=== PATIENT | female | born 1930 | race African-American/Black ===

== ENCOUNTER 2016-08-26 09:03 | Inpatient (IN) ==
[2016-08-26] MEDS ORDERED: DECADRON IM ONE (09:33)
[2016-08-26] MEDS ORDERED: CARDIZEM IV ONE ×2 (09:46→11:06)
[2016-08-26] MEDS ORDERED: NS 1,000 ML IV ONE ×2 (09:46→11:08)
[2016-08-26 10:03] LABS: MANUAL DIFF NEEDED? NO
[2016-08-26 10:07] LABS: BASO% 0.2 % (0.0-0.8); EOS# 0.33 X1000 (0.0-0.7); EOS% 2.8 % (0.0-10.0); HEMATOCRIT 39.5 % (37.0-47.0); IMM GRAN# 0.03 X1000 (0.0-0.04); IMM GRAN% 0.3 % (0.0-0.5); LYMPH# 1.78 X1000 (1.2-3.4); LYMPH% 14.9 % (20.5-51.1); MCH 27.5 PG (27-31); MCHC 32.9 g/dL (33-37); MCV 83.5 FL (81-99); MONO# 1.12 X1000 (0.11-0.59); MONO% 9.4 % (1.7-9.3); MPV 9.8 FL (7.4-10.4); NEUT% 72.4 % (42.2-75.2); PLT 400 X1000 (130-400); RBC 4.73 XMIL (4.2-5.4)
[2016-08-26 10:27] LABS: AGAP 19; ALBUMIN 4.1 g/dL (3.5-5.0); ALKALINE PHOSPHATASE 81 U/L (32-104); BUN 16 mg/dL (8-22); CALCIUM 10.5 mg/dL (8.8-10.2); CHLORIDE 99 mmol/L (98-107); CK PROFILE 98 U/L (24-173); COSMO 281; GOT 23 U/L (10-30); GPT 17 U/L (10-36); POTASSIUM 3.4 mmol/L (3.5-5.1); SODIUM 139 mmol/L (136-145); TCO2 21 mmol/L (25-35); TOTAL BILIRUBIN 0.43 mg/dL (0.20-1.00); TOTAL PROTEIN 8.4 g/dL (6.3-8.3)
--- NOTE | 2016-08-26 10:47 | PROVIDER DOCUMENTATION ---
This chart was entered by Mili Flores Scribe, acting as scribe for David Varela PA. HPI-EENT General - General Chief Complaint: Sore Throat Stated Complaint: SORE THROAT Time Seen by Provider: 08/26/16 09:26 Source: patient Allergies/Adverse Reactions: Patient Allergies Allergy/AdvReac Type Severity Reaction Status Date / Time Penicillins Allergy Intermediate RASH Verified 08/26/16 09:50 Sulfa (Sulfonamide Allergy Unknown Unknown Verified 08/26/16 09:50 Antibiotics) aspirin Allergy VOMITING Verified 08/26/16 09:50 Home Medications: Home Medication List Medication Instructions Recorded Confirmed Last Taken Type Amlodipine [Norvasc] 10 mg PO QAM 01/15/13 08/26/16 08/26/16 History Carvedilol [Coreg] 6.25 mg PO BID 10/24/13 08/26/16 01/02/16 07:00 History Hydralazine [Apresoline] 25 mg PO BID 10/24/13 08/26/16 08/26/16 History Brimonidine 0.15% Ophth Soln 1 drop TID 01/18/15 08/26/16 08/26/16 History [Alphagan P 0.15% Ophth Soln] Omeprazole [Prilosec] 20 mg PO DAILY@0700 #20 capsule 01/02/16 08/26/16 Rx Sucralfate [Carafate] 1 gm PO 4XDAY 01/02/16 08/26/16 08/26/16 History - History of Present Illness-EENT General Nature of Presenting Problem: Pt is a 86 yof who came to the ED with a cc of sore throat. Pt reports she she has been coughing, dizziness, and head ache for a few days. Pt reports it feels like she has to cough something up but nothing comes out Pt reports geri chest feels tight from coughing. PT reports this morning she drank some warm water and took a sinus pill and went back to bed. Pt reports when she woke up she went to take her dog out and noticed she had lost her voice. Pt denies fever, chills, N/V. EENT Location: reports: nose, throat Quality of Pain: reports: aching Onset/Duration: reports: unsure Timing: reports: still present Associated Symptoms: reports: cough, nasal congestion/drainage, voice change Locality of Occurance: Home Recently seen or treated by another doctor?: No - Ears Ear Problem Symptoms: reports: none Ear Problem Context: reports: none - Throat/Dental Throat/Dental Problem Symptoms: reports: sore throat Recently seen a dentist or have an appointment?: No Review of Systems - Adult - REVIEW OF SYSTEMS - ADULT Constitutional: denies: chills, fever Eyes: denies: decreased vision, double vision Ears, Nose, Mouth & Throat: reports: ear pain, sinus problem, hoarseness, throat pain. denies: hearing loss, nose pain, mouth/dental pain Cardiovascular: denies: heart murmur, orthopnea Respiratory: reports: no symptoms reported Gastrointestinal: reports: no symptoms reported Genitourinary: reports: no symptoms reported Musculoskeletal: reports: no symptoms reported Integumentary: reports: no symptoms reported Neurological: reports: no symptoms reported Psychiatric: reports: no symptoms reported Endocrine: reports: no symptoms reported Hematologic/Lymphatic: reports: no symptoms reported Allergic/Immunologic: reports: no symptoms reported All Other Systems: Reviewed and Negative Past History - Adult - PAST MEDICAL HISTORY-ADULT Review of Records: reports: Nursing Assessment Review Major Childhood Illnesses: reports: denies history Cardiovascular: reports: CAD, HTN Respiratory: reports: denies history Gastrointestinal: reports: GERD Obstetrical/Gynecological: reports: denies history Genitourinary: reports: denies history Musculoskeletal: reports: denies history Neurological: reports: other ([place] palsy) Endocrine/Immune: reports: denies history Other Conditions: reports: denies history - PRIOR SURGERIES/PROCEDURES Surgical/Procedure History: reports: cholecystectomy, cardiac stent, hysterectomy - PRIOR HOSPITALIZATIONS Prior Hospitalizations: reports: none - IMMUNIZATION STATUS Childhood Immunizations: See Nurse Assessment Flu Vaccine: See Nurse Assessment - FAMILY HISTORY Family History: reviewed, not pertinent Physical Exam- EENT - Physical Exam EENT Initial Vital Signs Reviewed: Yes General Appearance: alert, no apparent distress Ear Exam: bilateral ear: TM dull Nasal Exam: normal inspection Throat Exam: normal mouth inspection, pharynx normal Neck: non-tender Respiratory: wheezing Cardiovascular: regular rate, rhythm, no edema Abdominal Exam: normal bowel sounds, non tender, soft Lymphatic: no adenopathy Back Exam: normal inspection, no CVA tenderness, no vertebral tenderness Extremity: non-tender Integumentary: normal color, normal turgor Neurologic: grossly normal Psych/Mental Status: normal mood/affect, normal thought content, normal thought process, oriented x 3 Progress - PLAN OF CARE/RESULTS Progress/Plan/Lab Results: Vital Signs - 8 hr 08/26/16 09:03 08/26/16 10:21 08/26/16 10:51 Temperature 98.4 F Pulse Rate 77 91 H 96 H Respiratory Rate 20 18 20 Blood Pressure 131/83 132/76 115/81 O2 Sat by Pulse Oximetry 98 99 99 08/26/16 09:07 Group A Strep Rapid Antigen - Final Throat Laboratory Results - last 24 hr 08/26/16 08/26/16 08/26/16 09:56 09:56 09:56 WBC 11.93 H RBC 4.73 Hgb 13.0 Hct 39.5 MCV 83.5 MCH 27.5 MCHC 32.9 L RDW Std Deviation 14.6 H Plt Count 400 MPV 9.8 Immature Gran % (Auto) 0.3 Neut % (Auto) 72.4 Lymph % (Auto) 14.9 L [place] % (Auto) 9.4 H Eos % (Auto) 2.8 Baso % (Auto) 0.2 Immature Gran # (Auto) 0.03 Neut # (Auto) 8.65 H Lymph # (Auto) 1.78 [place] # (Auto) 1.12 H Eos # (Auto) 0.33 Baso # (Auto) 0.02 Sodium 139 Potassium 3.4 L Chloride 99 Carbon Dioxide 21 L Anion Gap 19 BUN 16 Creatinine 0.8 Estimated GFR/1.73 m2 > 60 BUN/Creatinine Ratio 20 Glucose 140 H Calculated Osmolality 281 Calcium 10.5 H Total Bilirubin 0.43 AST 23 ALT 17 Alkaline Phosphatase 81 Creatine Kinase 98 Troponin T < 0.010 Total Protein 8.4 H Albumin 4.1 Globulin 4.3 Albumin/Globulin Ratio 1.0 Orders Category Date Time Status Admit - [facility] Routine AdmDCTranf 08/26/16 11:08 Ordered Activity - Bed Rest with BRP ORDERED Care 08/26/16 11:08 Active Call Admitting on Arrival AT ADMISSION Care 08/26/16 11:08 Active Cardiac Monitoring DIRECTED Care 08/26/16 09:47 Active Saline Loc NOW Care 08/26/16 09:46 Active Vital Signs Order ROUTINE Care 08/26/16 11:08 Active Regular Diet Diet 08/26/16 11:09 Active CHEST-PORTABLE [RAD] Stat Exams 08/26/16 09:49 Completed CBC WITH ELECTRONIC DIFF [HEME] Stat Lab 08/26/16 09:56 Completed CK PROFILE [SP CHEM] Stat Lab 08/26/16 09:56 Completed COMPREHENSIVE METABOLIC PANEL [CHEM] Stat Lab 08/26/16 09:56 Completed DIRECT STREP Stat Lab 08/26/16 09:07 Completed TROPONIN T Stat Lab 08/26/16 09:56 Completed UA NIMS W/REFLEX CULT [URINALYSIS] Stat Lab 08/26/16 11:38 Completed 0.9% Sodium Chloride Inj [Ns] 1,000 ml Med 08/26/16 09:46 Active IV 150 mls/hr 0.9% Sodium Chloride Inj [Ns] 1,000 ml Med 08/26/16 11:08 Active IV 40 mls/hr Dexamethasone [Decadron] Med 08/26/16 09:33 Discontinued 10 mg IM NOW ONE Diltiazem [Cardizem] Med 08/26/16 09:46 Discontinued 20 mg IV NOW ONE Diltiazem [Cardizem] Med 08/26/16 11:06 Discontinued 20 mg IV NOW ONE Telemetry [OM.EQ] Routine Oth 08/26/16 11:08 Active EKG [EKG] Stat Ther 08/26/16 09:34 Ordered Transfer/Admit Order [TRANSFER] Routine Transfer 08/26/16 11:09 Ordered Result Diagrams: 08/26/16 09:56 08/26/16 09:56 - EKG 1 Time of EKG reading by physician:: 09:41 EKG Read and Signed by:: Lisa Espinoza EKG Interpretation (*Must complete 3 of following elements*): Abnormal Rate: 148 Rhythm: atrial fibrillation with rapid ventricular response QRS: LBB 2 Time of EKG reading by physician:: 11:00 EKG Read and Signed by:: Lisa Espinoza EKG Interpretation (*Must complete 3 of following elements*): Abnormal Rate: 114 Rhythm: atrial fibrillation with rapid ventricular response QRS: LBB 3 Time of EKG reading by physician:: 12:24 EKG Read and Signed by:: Lisa Espinoza EKG Interpretation (*Must complete 3 of following elements*): Abnormal Rate: 57 Rhythm: sinus bradycardia w/ premature atrial complexes in a pattern of bigeminy QRS: LBB - XRAY 1 XRAY Study: Chest Impression: Abnormal (CARDIOMEGALY, NO CHANGE FROM 10/05/14) - CONSULTS/PCP/HOSPITALIST Notification #1 *Consult/PCP/Hospitalist*: DR. ROACH (PCP) Time Discussed: 11:05 Reason/Comments: WRITE BASIC ORDERS TO GET PT TO FLOOR. Departure - Departure Time of Disposition Decision: 11:06 DIAGNOSIS: Laryngitis, Atrial fibrillation with RVR Disposition: ADMITTED INPATIENT 09 Certified Medical Emergency: Emergent Condition: Stable - Critical Care Note This patient required my direct personal management.: Yes Attestation - Physician/ PHILIP Attestation Patient care was provided by Advanced Practice Provider:: Yes Advanced Practice Provider:: David Varela Advanced Practice Provider documentation review:: The Mid-level provider documentation, treatment plan and medical decision making was reviewed by the physician who agrees with all treatment and medical decision making by the MLP. This chart was documented by the indicated scribe, (Mili Flores Scribe) and accurately reflects the services I performed and decisions made by me, David Varela PA, as attested by the provider's signature.
[2016-08-26 11:49] LABS: URINE MICRO REVIEW NEEDED? NO; URINE SOURCE CLEAN CATCH
[2016-08-26 11:51] LABS: BILIRUBIN URINE NEGATIVE (NEGATIVE); BLOOD URINE NEGATIVE (NEGATIVE); COLOR YELLOW; GLUCOSE URINE NEGATIVE (NEGATIVE); LEUKOCYTES URINE LARGE (NEGATIVE); NITRITE URINE NEGATIVE (NEGATIVE); PROTEIN URINE TRACE mg/dL (NEGATIVE); SP GRAVITY URINE 1.008; TURBIDITY URINE CLEAR (CLEAR); UR EPITHELIAL CELLS <10 /HPF (<10); URINE BACTERIA NEGATIVE /HPF; URINE CULTURE NEEDED? YES; URINE RBC <10 /HPF (<10); UROBILINOGEN URINE NORMAL (NORMAL)
--- NOTE | 2016-08-26 12:46 | Diag Imaging Result Document ---
PROCEDURE NAME: CHEST-PORTABLE - 08/26/2016 PORTABLE CHEST: COMPARISON: 01/18/2015. FINDINGS: There is cardiomegaly similar to the previous exam. Inspiration is somewhat shallow. Allowing for inspiration, the lungs appear essentially clear. There is no pleural effusion or pneumothorax identified. IMPRESSION: Stable cardiomegaly. Somewhat shallow inspiration. No other evidence of acute disease.
[2016-08-26] MEDS ORDERED: SODIUM CHLORIDE 0.9% INJ SCH (14:00)
[2016-08-26] MEDS ORDERED: LOVENOX SUBQ SCH (14:00)
[2016-08-26] MEDS ORDERED: PROTONIX IV SCH (14:00)
[2016-08-26] MEDS: POTASSIUM CHLORIDE 20 MEQ/SWI 20 MEQ/100 ML IVPB IV SCH ×2 (15:14→19:07)
[2016-08-26] MEDS: CARAFATE LIQUID PO SCH ×2 (17:32→21:23)
[2016-08-26] MEDS: ALPHAGAN P 0.15% OPHTH SOLN BOTH EYES SCH (17:41)
[2016-08-26] MEDS ORDERED: VITAMIN D PO ONE (18:16)
--- NOTE | 2016-08-26 18:39 | HISTORY AND PHYSICAL ---
CHIEF COMPLAINT: Sore throat. HISTORY OF PRESENT ILLNESS: She is an 86-year-old, white female, who was brought in by family by ambulance to the hospital for further evaluation of sore throat. The patient was diagnosed with laryngitis. Strep test was negative. While she was in the ER patient went into rapid atrial fibrillation requiring Cardizem. As a result, she has been hospitalized for observation. Patient had a workup done for cardiac 11/09/2014. She has underlying left bundle branch block and now evidence of reversible ischemia. Currently she is in sinus. Admitted in telemetry. She was receiving IV antibiotics. If she continues to be stable will be discharged in the morning. Patient was seen in my office on 2017. She had annual exam. PAST MEDICAL HISTORY: Left bundle branch block. 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 Type 2 diabetes. Glaucoma. History of shingles in the right L1. Hypertension. Peripheral vascular disease. Polymyalgia rheumatica. Hyperlipidemia. Renal artery stenosis status post angioplasty. Chronic back pain due to lumbar spinal stenosis. Vitamin D deficiency. PAST SURGICAL HISTORY: Cholecystectomy, hysterectomy. MEDICINES: In my office are amlodipine 10 mg daily, Carafate as needed, Coreg 6.25 p.o. b.i.d., glaucoma drops with Travatan, latanoprost as directed, vitamin D 85083 once a week, Zantac 150 once daily. ALLERGIES: Codeine, Glucophage, Keflex, penicillin, sulfa drugs. SOCIAL HISTORY: She is . Six children. Lives in [place]. No smoking. No alcohol. FAMILY HISTORY: Father of MVA and mom of age at 80 from heart attack. HEALTH MAINTENANCE: Flu vaccine 2016, pneumococcal vaccine 2017, mammography 2010. REVIEW OF SYSTEMS: HEENT: No headache. No vision problem. No earache. Sore throat. Neck: No goiter. No lymphadenopathy. No bruit. Cardiopulmonary: Palpitations. No shortness of breath. No PND. No orthopnea. GI: No nausea, vomiting, abdominal pain. : No history of hesitancy, frequency. Skin: No skin rashes. No swelling of legs. Chronic back pain. Neurologic: No obvious weakness or seizures. PHYSICAL EXAMINATION: VITAL SIGNS: Stable. Afebrile. Blood pressure is slightly running high. 5 feet 2 inches, 151 pounds. HEENT: Atraumatic, normocephalic. Pupils equal, reactive to light. Left-sided Morgan's palsy noted. TMs are normal. No exudate present. NECK: No lymphadenopathy. No bruit. CHEST: Clear to auscultation. HEART: Sounds are regular. No murmur. BREASTS: Exam deferred. ABDOMEN: Belly is soft, nontender. Good bowel sounds. No masses palpable. No peripheral edema, cyanosis, clubbing. NEUROLOGIC: No obvious focal deficits. INVESTIGATIONS: White cell count 11, hematocrit 39, platelet count 400,000. SMA 7 is normal except potassium 3.4, glucose 140 and cardiac enzymes were normal. Total protein 8.4. Urinalysis slightly positive. Chest x-ray stable cardiomegaly and no evidence of acute disease. ASSESSMENT AND PLAN: 1. An 86-year-old, white female, admitted to the hospital with sore throat due to laryngitis and we will continue the IV antibiotics with Levaquin. 2. Paroxysmal atrial fibrillation with left bundle. Previous Lexiscan is negative 2014. Continue to monitor. If she is stable will be discharged and we will discuss about the pros and cons about the anticoagulation. 3. DVT prophylaxis with Lovenox. 4. Gastrointestinal prophylaxis with IV Protonix. 5. Glaucoma. Continue the eye drops. 6. Hypertension, on amlodipine, Coreg and hydralazine. 7. Discussed with the patient and the family at bedside and we will follow up on the pending labs. cc: Juan Alberto Dodd MD
[2016-08-26] MEDS: COREG PO SCH (21:23)
[2016-08-26] MEDS: LEVAQUIN 500 MG/D5W 500 MG/100 ML IVPB IV SCH (21:23)
[2016-08-26] MEDS: APRESOLINE PO SCH (21:23)
[2016-08-26] MEDS ORDERED: TYLENOL PO PRN (21:32)
[2016-08-27 05:09] LABS: MANUAL DIFF NEEDED? NO
[2016-08-27 05:16] LABS: BASO% 0.3 % (0.0-0.8); EOS# 0.39 X1000 (0.0-0.7); EOS% 3.8 % (0.0-10.0); HEMATOCRIT 34.5 % (37.0-47.0); HEMOGLOBIN 11.4 g/dL (12.0-16.0); IMM GRAN# 0.02 X1000 (0.0-0.04); IMM GRAN% 0.2 % (0.0-0.5); LYMPH# 1.47 X1000 (1.2-3.4); LYMPH% 14.5 % (20.5-51.1); MCH 27.9 PG (27-31); MCV 84.6 FL (81-99); MONO# 1.05 X1000 (0.11-0.59); MONO% 10.4 % (1.7-9.3); MPV 9.6 FL (7.4-10.4); NEUT% 70.8 % (42.2-75.2); PLT 363 X1000 (130-400); RBC 4.08 XMIL (4.2-5.4)
[2016-08-27 05:38] LABS: AGAP 15; BUN 10 mg/dL (8-22); CALCIUM 9.6 mg/dL (8.8-10.2); CHLORIDE 103 mmol/L (98-107); COSMO 279; HEMOGLOBIN A1C 5.9 % (4.8-6.0); POTASSIUM 3.6 mmol/L (3.5-5.1); SODIUM 140 mmol/L (136-145); TCO2 22 mmol/L (25-35)
[2016-08-27] MEDS: ALPHAGAN P 0.15% OPHTH SOLN BOTH EYES SCH ×2 (08:24→13:53)
[2016-08-27] MEDS: CARAFATE LIQUID PO SCH ×2 (08:24→13:42)
[2016-08-27] MEDS: APRESOLINE PO SCH (08:25)
[2016-08-27] MEDS: COREG PO SCH (08:25)
[2016-08-27] MEDS ORDERED: NORVASC PO SCH (09:00)
[2016-08-27 11:32] VITALS: BP 122/61
[2016-08-27] MEDS ORDERED: PREVNAR 13 IM ONE (12:15)
[2016-08-27] MEDS: LEVAQUIN 500 MG/D5W 500 MG/100 ML IVPB IV SCH (12:49)
--- NOTE | 2016-08-27 14:09 | PROGRESS NOTE ---
DATE: 08/27/2016 LEVEL OF DOCUMENTATION: S3. INTERVAL HISTORY: Complains of hoarseness of voice, sore throat. No shortness of breath. No PND. No orthopnea. The patient was monitored in telemetry, remained in normal sinus. REVIEW OF SYSTEMS: None reported. EXAMINATION: Vitals: Stable. Temperature is 97 degrees, blood pressure is 122/61, on room air 100%. HEENT Exam: Had a Morgan's palsy on the left side. Throat is not able to see any exhibit. Neck is supple. Voice is slightly hoarse. Chest: Clear. Heart: Sounds are regular. Belly: Soft, obese, nontender. Good bowel sounds. Extremities: No peripheral edema, cyanosis, clubbing. INVESTIGATIONS: EKG that was done yesterday atrial fibrillation with left bundle. LABS: CBC. White cell count 10, hematocrit 34, platelets 363,000. SMA 7 is normal. TSH is normal. Urinalysis possible UTI. Urine cultures were negative. Group B strep screen was negative. Chest x-ray cardiomegaly. ASSESSMENT AND PLAN: 1. Paroxysmal atrial fibrillation with left bundle. Previous workup was negative in 2014 for ischemic and will do outpatient stress test. Normal thyroid function tests and in light of risk factors for having a stroke will start on Eliquis 2.5 p.o. b.i.d. 2. Hypokalemia resolving. 3. Upper respiratory tract infection with laryngitis. P.o. Levaquin. If no improvement consider the ENT evaluation. 4. Hypertension on amlodipine 10 mg daily, Coreg 6.25 p.o. b.i.d., hydralazine 25 p.o. b.i.d. 5. Acid reflux disease on Carafate and Prilosec. 6. Vitamin D deficiency on replacement therapy. 7. Glaucoma stable. 8. Vaccinations. Will administer pneumonia vaccine 13. Prescriptions has been sent to [facility] pharmacy in [place]. DISPOSITION: Discharged home. Follow up in my office in 1 week. Will do outpatient stress test. Discussed with the patient and the family. LEVEL OF DOCUMENTATION: 35 minutes. cc: Juan Alberto Dodd MD
--- NOTE | 2016-08-28 08:40 | EKG Report ---
Test Performed on : 08/26/2016 09:41:00 AM Test Reason : loss of voice, sob, productive cough Blood Pressure : / mmHG Vent. Rate : 139 BPM Atrial Rate : 136 BPM P-R Int : 000 ms QRS Dur : 140 ms QT Int : 296 ms P-R-T Axes : 000 -26 146 degrees QTc Int : 450 ms Atrial fibrillation. with rapid ventricular response. with premature ventricular or aberrantly condu cted complexes. Left bundle branch block Abnormal ECG When compared with ECG of 05-OCT-2014 17:21, Atrial fibrillation. has replaced Sinus rhythm. Vent. rate has increased BY 62 BPM Unconfirmed Result
--- NOTE | 2016-08-28 15:46 | EKG Report ---
Test Performed on : 08/26/2016 12:24:10 PM Test Reason : ED. Not ordered in [place] Blood Pressure : / mmHG Vent. Rate : 057 BPM Atrial Rate : 057 BPM P-R Int : 142 ms QRS Dur : 150 ms QT Int : 486 ms P-R-T Axes : 055 -24 111 degrees QTc Int : 473 ms Sinus bradycardia. with premature atrial complexes. in a pattern of bigeminy. Left bundle branch block Abnormal ECG When compared with ECG of 26-AUG-2016 11:00, (Unconfirmed) Sinus rhythm. has replaced Atrial fibrillation. Vent. rate has decreased BY 57 BPM Unconfirmed Result
--- NOTE | 2016-08-28 15:46 | EKG Report ---
Test Performed on : 08/26/2016 11:00:16 AM Test Reason : REPEAT Blood Pressure : / mmHG Vent. Rate : 114 BPM Atrial Rate : 197 BPM P-R Int : 000 ms QRS Dur : 144 ms QT Int : 380 ms P-R-T Axes : 000 -22 131 degrees QTc Int : 523 ms Atrial fibrillation. with rapid ventricular response. Left bundle branch block Abnormal ECG When compared with ECG of 26-AUG-2016 09:41, (Unconfirmed) No significant change was found Unconfirmed Result
[2016-09-02] MEDS ORDERED: VITAMIN D PO SCH (09:00)
== END 2016-08-27 14:25 | disposition home or self-care (01) ==
LOC: ED 09:03 → EDIPHOLD 11:32 → 3S 13:13
PROVIDERS: ADMIT Internal Medicine; ATTEND Internal Medicine